=== PATIENT | male | born 2000 | race Two or more races ===

== ENCOUNTER 2025-02-15 00:41 | Emergency (ER) | payer MEDICAID, OTHER ==
[~2025-02-15] VITALS: Ht 165.1 cm; Wt 72.7 kg
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
[2025-02-15] MEDS ORDERED: HYDR-4902 PO (05:07)
[2025-02-15] MEDS ORDERED: METH-1181 PO (05:07)
[2025-02-15] MEDS ORDERED: IBUP-1455 PO (05:07)
[2025-02-15] MEDS: METHOCARBAMOL 500 MG TAB PO ONE (05:57)
[2025-02-15] MEDS: HYDROcodone-ACET 5/325MG TAB PO ONE (05:57)
[2025-02-15 05:58] VITALS: BP 125/78; PULSE 82; RESP 18; TEMP 98; O2SAT 98
== END 2025-02-15 05:58 | disposition home or self-care (01) ==
LOC: ER 00:41
DX: S10.83XA Contusion of other specified part of neck, initial encounter (principal); S30.0XXA Contusion of lower back and pelvis, initial encounter; S70.02XA Contusion of left hip, initial encounter; Z79.899 Other long term (current) drug therapy; V89.2XXA Person injured in unspecified motor-vehicle accident, traffic, initial encounter; Y93.89 Activity, other specified; Y92.488 Other paved roadways as the place of occurrence of the external cause; Y99.8 Other external cause status
CPT/HCPCS: 72125; 72128; 72131; 72192; 73030; 73060; 73080; 73090; 73610